=== PATIENT | male | born 2000 | race Caucasian/White ===

== ENCOUNTER 2019-02-06 13:09 | Emergency (ER) | payer BC ==
--- NOTE | 2019-02-06 13:41 | ED ---
Abdominal Pain/Male - HPI Summary HPI Summary: Pt is a 18 y/o M presenting to the ED for a chief complaint of constant abdominal pain near the umbilicus that began 2 hours ago. Pt was eating lunch at approximately 11:30 on 02/06/19 after which he began to feel abdominal pain. Pt found it difficult to walk due to the abdominal pain, but the pain has since improved. Pt admits fatigue, diaphoresis, and SOB that has since resolved. Pt last had a bowel movement last night. Pt admits abdominal pain with movement on the car ride to the ED. Pt denies any fever, chills, erythema of eyes, sore throat, CP, cough, N/V, dysuria, hematuria, urinary frequency, myalgia, back pain, testicular pain, edema, rash, or dizziness. Pt admits eating spicy and acidic foods one day ago. Pt drinks coffee and had alcohol this last weekend. Pt denies tobacco use. 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 - History of Current Complaint Chief Complaint: EDAbdPain Stated Complaint: ABD PAIN PER PT Time Seen by Provider: 02/06/19 13:39 Hx Obtained From: Patient Hx From Patient Unobtainable Due To: Altered Mental Status Onset/Duration: Still Present Timing: Lasting Hours - 2 hours ago Severity Initially: Severe Severity Currently: Severe Pain Intensity: 7 Pain Scale Used: 0-10 Numeric Location: Umbilical Radiates: No Aggravating Factor(s): Movement - On the car ride to the ED Alleviating Factor(s): Nothing Associated Signs And Symptoms: Positive: Diaphoresis. Negative: Fever, Cough, Dizzy, Back Pain, Urinary Symptoms - Negative dysuria or hematuria, Nausea, Vomiting, Diarrhea - Allergies/Home Medications Allergies/Adverse Reactions: Allergies Allergy/AdvReac Type Severity Reaction Status Date / Time No Known Allergies Allergy Verified 02/06/19 13:35 Home Medications: Home Medications NK [No Home Medications Reported] 02/06/19 [History Confirmed 02/06/19] PMH/Surg Hx/FS Hx/Imm Hx Previously Healthy: Yes Endocrine/Hematology History: Denies: Hx Diabetes Cardiovascular History: Denies: Hx Hypercholesterolemia, Hx Hypertension Sensory History: Denies: Hx Legally Blind, Hx Deafness Opthamlomology History: Denies: Hx Legally Blind EENT History: Denies: Hx Deafness - Surgical History Surgical History: None Surgery Procedure, Year, and Place: None Infectious Disease History: No Infectious Disease History: Denies: Traveled Outside the [place] in Last 30 Days - Family History Known Family History: Negative: Hypertension, Diabetes - Social History Occupation: Student Alcohol Use: Occasionally Hx Substance Use: No Substance Use Type: Reports: None Hx Tobacco Use: No Smoking Status (MU): Never Smoked Tobacco Review of Systems Positive: Fatigue, Skin Diaphoresis. Negative: Fever, Chills Negative: Erythema Negative: Sore Throat Negative: Chest Pain Positive: Shortness Of Breath - Resolved. Negative: Cough Positive: Abdominal Pain - Near the umbilical area. Negative: Vomiting, Nausea Negative: dysuria, frequency - Urinary, hematuria, pain - Testicular Negative: Myalgia - Negative back pain, Edema Negative: Rash Neurological: Other - Negative dizziness All Other Systems Reviewed And Are Negative: Yes Physical Exam - Summary Physical Exam Summary: Constitutional: Well-developed, Well-nourished, Alert. (-) Distressed Skin: Warm, Dry HENT: Normocephalic; Atraumatic Eyes: Conjunctiva normal Neck: Musculoskeletal ROM normal neck. (-) JVD, (-) Stridor, (-) Tracheal deviation Cardio: Rhythm regular, rate normal, Heart sounds normal; Intact distal pulses; The pedal pulses are 2+ and symmetric. Radial pulses are 2+ and symmetric. (-) Murmur Pulmonary/Chest wall: Effort normal. (-) Respiratory distress, (-) Wheezes, (-) Rales Abd: Soft, (-) Distension, (-) Guarding, (-) Rebound. Epigastric tenderness. Musculoskeletal: (-) Edema Lymph: (-) Cervical adenopathy Neuro: Alert, Oriented x3 Psych: Mood and affect Normal Triage Information Reviewed: Yes Vital Signs On Initial Exam: Initial Vitals Temp Pulse Resp BP Pulse Ox 97.7 F 56 18 123/72 97 02/06/19 13:12 02/06/19 13:12 02/06/19 13:12 02/06/19 13:12 02/06/19 13:12 Vital Signs Reviewed: Yes Procedures - Sedation Patient Received Moderate/Deep Sedation with Procedure: No Diagnostics - Vital Signs Vital Signs Temp Pulse Resp BP Pulse Ox 02/06/19 13:12 97.7 F 56 18 123/72 97 - Laboratory Result Diagrams: 02/06/19 14:33 02/06/19 14:33 Lab Statement: Any lab studies that have been ordered have been reviewed, and results considered in the medical decision making process. - CT Abdomen/Pelvis CT CT Interpretation Completed By: Radiologist Summary of CT Findings: Abdomen/Pelvis CT IMPRESSION: 1. No CT evidence of acute appendicitis. 2. Although not pathologically dilated, there is a large amount of stool throughout the colon including the rectum. Please correlate to signs or symptoms of constipation. Reviewed by ED physician. - Ultrasound Gallbladder US Ultrasound Interpretation Completed By: Radiologist Summary of Ultrasound Findings: Gallbladder US IMPRESSION: #. 0.26 cm probable cholesterol or inflammatory polyp. Gallbladder polyps 0.6 cm or. smaller have extremely low risk of malignancy and typically do not warrant follow up. On. occasion polyps may actually represent small gallstones adherent to the gallbladder wall. at surgery. #. Examination is otherwise unremarkable. Reviewed by ED physician. Appendix US Ultrasound Interpretation Completed By: Radiologist Summary of Ultrasound Findings: Appendix US IMPRESSION: THE APPENDIX IS NOT VISUALIZED. THERE IS NO FREE OR LOCULATED FLUID WITHIN THE RIGHT LOWER. QUADRANT. Reviewed by ED physician. Re-Evaluation - Re-Evaluation First Re-Evaluation Time: 15:07 Change: Unchanged Comment: At 15:07, pt is still having pain, now localized to the periumbilical region. Abdominal Pain Male Course/Dx - Course Course Of Treatment: Pt is a 18 y/o M presenting to the ED for a chief complaint of constant abdominal pain near the umbilicus that began 2 hours ago. Pt was eating lunch at approximately 11:30 on 02/06/19 after which he began to feel abdominal pain. Pt found it difficult to walk due to the abdominal pain, but the pain has since improved. Pt admits fatigue, diaphoresis, and SOB that has since resolved. Pt last had a bowel movement last night. Pt admits abdominal pain with movement on the car ride to the ED. Pt denies any fever, chills, erythema of eyes, sore throat, CP, cough, N/V, dysuria, hematuria, urinary frequency, myalgia, back pain, testicular pain, edema, rash, or dizziness. Pt admits eating spicy and acidic foods one day ago. Pt drinks coffee and had alcohol this last weekend. Pt denies tobacco use. On exam, pt has epigastric tenderness. In the ED course, pt was given al hydrox/mg hydrox/ simethicone 30 ml PO, lidocaine 2 % 15 ml PO, oxycodone 1 tab PO, iohexol 97 ml IV, and magnesium citrate 300 ml PO. At 15:07, pt is still having pain, now localized to the periumbilical region. Laboratory findings: unremarkable. Gallbladder US: #. 0.26 cm probable cholesterol or inflammatory polyp. Gallbladder polyps 0.6 cm or smaller have extremely low risk of malignancy and typically do not warrant follow up. On occasion polyps may actually represent small gallstones adherent to the gallbladder wall at surgery. #. Examination is otherwise unremarkable. Appendix US IMPRESSION: THE APPENDIX IS NOT VISUALIZED. THERE IS NO FREE OR LOCULATED FLUID WITHIN THE RIGHT LOWER QUADRANT. Abdomen/Pelvis CT IMPRESSION: 1. No CT evidence of acute appendicitis. 2. Although not pathologically dilated, there is a large amount of stool throughout the. colon including the rectum. Please correlate to signs or symptoms of constipation. Pt will be discharged with a diagnosis of upper abdominal pain and constipation. Follow up with [facility] in 2-3 days. - Diagnoses Provider Diagnoses: Upper abdominal pain, Constipation Discharge ED - Sign-Out/Discharge Documenting (check all that apply): Patient Departure - Discharge - Discharge Plan Condition: Stable Disposition: HOME Patient Education Materials: Constipation (ED), High Fiber Diet (ED) Referrals: [facility] - Quoc MARCH [Primary Care Provider] - Additional Instructions: Follow up with [facility] in 2-3 days. Follow a high fiber diet. RETURN TO THE EMERGENCY DEPARTMENT FOR CHANGING OR WORSENING SYMPTOMS. - Attestation Statements Document Initiated by Rajibe: Yes Documenting Scribe: Koki Loyd Provider For Whom Rajibe is Documenting (Include Credential): Nate Gates MD Scribe Attestation: Koki Varner, scribed for Nate Gates MD on 02/06/19 at 1815. Status of Scribe Document: Ready
[2019-02-06] MEDS ORDERED: Lidocaine 2% VISCOUS* 15 ML UDC PO ONE (13:50)
[2019-02-06] MEDS ORDERED: Al Hydrox/Mg Hydrox/Simet LIQ* 30 ML UDC PO ONE (13:50)
[2019-02-06 14:37] LABS: Urine Appearance Clear; Urine Bilirubin Negative (Negative); Urine Blood Negative (Negative); Urine Color Yellow; Urine Glucose Negative (Negative); Urine Ketones Negative (Negative); Urine Nitrite Negative (Negative); Urine Protein Negative (Negative); Urine Specific Gravity 1.013 (1.010-1.030); Urine Urobilinogen Negative (Negative)
[2019-02-06 14:42] LABS: ABS Basophils 0.1 10^3/ul (0-0.2); ABS Eosinophils 0.2 10^3/ul (0-0.6); ABS Lymphocytes 1.5 10^3/ul (1.0-4.8); ABS Monocytes 0.4 10^3/ul (0-0.8); ABS Neutrophils 2.9 10^3/ul (1.5-7.7); Eosinophil % 4.3 %; Hematocrit 45 % (42-52); Hemoglobin 15.4 g/dL (14.0-18.0); Lymphocyte % 29.3 %; Mean Corpuscular HGB Conc 34 g/dL (31-36); Mean Corpuscular Hemoglobin 31 pg (27-31); Mean Corpuscular Volume 92 fL (80-94); Mean Platelet Volume 7.4 fL (7.4-10.4); Nucleated Red Blood Cells % 0.1; Platelet Count 210 10^3/uL (150-450); Red Blood Count 4.91 10^6 /uL (4.18-5.48); Red Cell Distribution Width 13 % (10-15)
[2019-02-06 14:59] LABS: ALT 13 U/L (7-52); AST 19 U/L (13-39); Albumin 4.6 g/dL (3.2-5.2); Albumin/Globulin Ratio 1.5 (1-3); Alkaline Phosphatase 63 U/L (34-104); Anion Gap 4 mmol/L (2-11); BUN/Creatinine Ratio 16.1 (8-20); Blood Urea Nitrogen 18 mg/dL (6-24); C Reactive Protein < 1.00 mg/L (<8.01); CO2 Carbon Dioxide 32 mmol/L (22-32); Calcium 10.3 mg/dL (8.6-10.3); Chloride 102 mmol/L (101-111); EGFR African American 101.1 (>60); EGFR Non-African American 83.6 (>60); Glucose 95 mg/dL (70-100); Potassium 4.3 mmol/L (3.5-5.0); Sodium 138 mmol/L (135-145); Total Protein 7.6 g/dL (6.4-8.9)
[2019-02-06] MEDS ORDERED: oxyCODONE/Acetamin 5/325 MG* TAB PO ONE (15:08)
[2019-02-06] MEDS ORDERED: Iohexol 300* (CONTRAST) 10 ML SDV IV ONE (16:34)
[2019-02-06] MEDS ORDERED: Magnesium CITRATE* 300 ML BTL PO ONE (18:09)
[2019-02-06 18:51] VITALS: BP 116/66
== END 2019-02-06 18:52 | disposition home or self-care (01) ==
LOC: ED 13:09
DX: K59.00 Constipation, unspecified (principal)
CPT/HCPCS: 36415; 74177; 76705; 80053; 81003; 83605; 83690; 85025; 86140; 99283; A9270-GY; Q9967